=== PATIENT | male | born 1980 | race Caucasian/White ===

== ENCOUNTER 2017-07-08 09:26 | Emergency (ER) | payer SELFPAY ==
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
--- NOTE | 2017-07-08 11:09 | CR ---
EXAMINATION: Right knee HISTORY: Pain COMPARISON: None TECHNIQUE: 3 views FINDINGS/IMPRESSION: There is no acute osseous abnormality, dislocation, or fracture. Bone mineraliza tion and joint spaces are grossly preserved. Trace suprapatellar joint fluid.
== END 2017-07-08 11:40 | disposition home or self-care (01) ==
LOC: MW.ED 09:26
DX: M25.561 Pain in right knee (principal); F17.210 Nicotine dependence, cigarettes, uncomplicated; Z88.6 Allergy status to analgesic agent
CPT/HCPCS: 73562-26-RT; 73562-RT; 99283

== ENCOUNTER 2017-07-13 09:18 | Emergency (ER) | payer OTHER ==
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
[2017-07-13 09:53] LABS: CHLORIDE,CL 106 mmol/L (98-110); SODIUM,NA 136 mmol/L (136-146)
[2017-07-13] MEDS ORDERED: Iopamidol 755 Mg/ML 100 ML Bottle IVPUSH STA (10:16)
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
== END 2017-07-13 11:47 | disposition left against medical advice (07) ==
LOC: MW.ED 09:18
DX: S06.0X9A Concussion with loss of consciousness of unspecified duration, initial encounter (principal); V49.49XA Driver injured in collision with other motor vehicles in traffic accident, initial encounter
CPT/HCPCS: 70450; 71260; 72125; 74177; 80053; 81001; 82150; 83690; 84484; 85025; 85610; 99285; G0390; Q9967; 72128-26; 72131-26